=== PATIENT | female | born 1995 | race Caucasian/White ===

== ENCOUNTER 2020-07-30 07:17 | Inpatient (IN) | payer BC ==
--- NOTE | 2020-07-29 20:17 | PCM.LDHP ---
L&D History of Present Illness - General Date of Service: 07/30/20 Admit Problem/Dx: Admission Diagnosis/Problem Admission Diagnosis/Problem 07/29/20 19:56 Tonya is a 25-year-old 2 para 1-0-0-1 female admitted on the a.m. of 07/30/2020 at 39-0/7 weeks gestational age with an ELIZABETH of 08/06/2020 for induction of labor. Source of Information: Patient History Limitations: Reports: No Limitations - History of Present Illness Introduction:: Tonya is a 25-year-old 2 para 1-0-0-1 female admitted on the a.m. of 07/30/2020 at 39-0/7 weeks gestational age with an ELIZABETH of 08/06/2020 for induction of labor. The process of labor and delivery, its risks, benefits, limitations, follow-up and alternatives including allowing for natural onset of labor discussed in detail with the patient. She appears to understand and wishes to proceed. 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 Patient had menarche at age 10. Cycles are regular at every 30 days. She is not using any control at the time of conception. She had positive hCG on 12/09/2019 and her LMP started on 10/30/2019. Her present is dated by an early ultrasound that was done on 01/17/2020. It is supported by multiple ultrasounds during the course of her . She denies any STIs. Also any abnormal Pap smears. Her obstetric history consists of the followin. Male born 12/15/2019 at 36-5/7 weeks gestational age of 12 [facility]7 [facility] perineal laceration. history: Patient was seen early in the on 01/17/2020. She was seen on a very regular basis throughout the care course. Her weight gain was from 167 to 196.8 pounds for approximately 30 pound increase. Her vital signs have been stable. Fundal height growth has been appropriate. She desires natural labor. Her group B strep screen was negative. She is a g estational diabetic that is well controlled with Metformin 500 mg2 tabs daily. History of hypertension/preeclampsia with previous . She declined GC and Chlamydia evaluation. Prequel performed and was negative trisomy 21, 18 and 13 on 01/31/2020. Biophysical profiles of been done on a weekly basis and been reassuring since 32 weeks gestational age. Patient had her Tdap on 05/29/2020. Hepatitis B immunization given 1998. Laboratory testing in : Blood is a positive with a negative antibody screen. First laboratory test showed hemoglobin 12.9 g/dL. Platelets were 232,000. She is rubella immune. RPR was nonreactive. Urine culture was negative. Hepatitis B surface antigen and HIV assays were both negative. Second trimester labs showed hemoglobin 12.5 g/dL and platelets of 222,000. Her 3-hour glucose tolerance test was elevated with a fasting blood sugar 102 a 1 hour blood sugar of 202 a 2-hour blood sugar of 173 and a 3-hour glucose of 73. Antibody screen was negative. Group B strep screen is negative. Allergies: Nickel which causes a rash Medications: 1. Metformin 500 mg2 tabs daily 2. Hydrocortisone 2.5% external cream applied as needed to rash 3. Aspirin 81 mg p.o. daily 4. vitamins 1 p.o. daily 5. Folic acid 800 mcg/day 6. Calcium 500 mg p.o. daily 7. Colace 100 mg capsules twice daily as needed for constipation 8. Prilosec 20 mg p.o. daily as needed for dyspepsia Past medical history: 1. Asthma 2. Seasonal allergies 3. Abnormal Pap smear 2016 with ASCUS changes 4. Infertility 5. Hypertension with previous 6. Gestational diabetes. Past surgical history: Unremarkable Family history: Mother has family history of psoriasis. Maternal grandfather with lung cancer and psoriasis. Paternal grandfather with type 2 diabetes, hypertension, malignant melanoma and pancreatic cancer. Paternal grandfather had mets to his brain and bone. 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 She is a college graduate. She does not use any significant also alcohol, drugs or tobacco. is is Ernesto Review of systems: In general patient has no complaints. Baby has been active. Skin: Negative Lungs: No infectious symptoms or shortness of breath Cardiovascular: No chest pain or exercise intolerance Breasts: No lumps, changes in size, pain, dimpling, discharge or axillary or supraclavicular concerns. GI: Negative : Body habitus changes consistent with . Musculoskeletal: Negative Neurological: Patient has had carpal tunnel syndrome bilaterally with right side greater than left. In general the patient is well-developed, well-nourished, pleasant female of stated age in no acute distress. Skin is warm dry without lesions. HEENT, neck and back within normal limits. Lungs are clear with good breath sounds in all lung smith. Cardiovascular exam shows regular and rhythm without murmurs. Abdomen is gravid with last fundal height on 07/26/2020 at 39.5 cm.. Genital per them on 07/26/2020 shows cervix to be 2 cm plus, -3 station, 50% effaced, soft, mid position. Extremities show 1+ pitting edema otherwise are negative. Neurological exam is grossly within normal limits. Timing/Duration: Reports: sudden onset - Related Data Allergies/Adverse Reactions: Allergies Allergy/AdvReac Type Severity Reaction Status Date / Time nickel Allergy Rash Verified 12/10/17 17:27 Home Medications: Home Meds Acetaminophen [Tylenol] 650 mg PO Q6H PRN tablet 12/17/17 [Rx] Benzocaine/Menthol [Dermoplast Pain Relief [place]] 1 spray TOP ASDIRECTED PRN canister 12/17/17 [Rx] Docusate Sodium [Dulcolax Stool Softener] 100 mg PO BID #60 capsule 12/17/17 [Rx] Ibuprofen 200 - 600 mg PO Q6H #60 tablet 12/17/17 [Rx] Lanolin [Lansinoh HPA] 1 applic TOP ASDIRECTED PRN tube 12/17/17 [Rx] witch Herbert [Tucks] 1 pad TOP ASDIRECTED PRN pad 12/17/17 [Rx] Past Medical History HEENT History: Reports: None, Other (See Below) Other HEENT History: wears glasses Cardiovascular History: Reports: Hypertension, Other (See Below) Other Cardiovascular History: HTN with Respiratory History: Reports: Asthma, Other (See Below) Other Respiratory History: Hx stress induced asthma (exercise) and has not needed her inhaler x 6 years. 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 Psychiatric History: Reports: None Hematologic History: Reports: Anemia Immunologic History: Reports: None Oncologic (Cancer) History: Reports: None Dermatologic History: Reports: None - Infectious Disease History Infectious Disease History: Reports: None - Past Surgical History Head Surgeries/Procedures: Reports: None HEENT Surgical History: Reports: Oral Surgery Other HEENT Surgeries/Procedures: wisdom teeth pulled Cardiovascular Surgical History: Reports: None Respiratory Surgical History: Reports: None GI Surgical History: Reports: None Neurological Surgical History: Reports: None Dermatological Surgical History: Reports: None Social & Family History - Family History Family Medical History: No Pertinent Family History - Caffeine Use Caffeine Use: Reports: None H&P Review of Systems - Review of Systems: Review Of Systems: See Below L&D Exam - Exam Exam: See Below - Problem List (1) 39 weeks gestation of SNOMED Code(s): 53025734 ICD Code: Z3A.39 - 39 WEEKS GESTATION OF Status: Acute (2) History of pre-eclampsia SNOMED Code(s): 494742433409072 ICD Code: Z87.59 - PERSONAL HISTORY OF COMP OF PREG, CHLDBRTH AND THE PUERP Status: Acute Problem List Initiated/Reviewed/Updated: Yes Assessment/Plan Comment:: 1. Tonya is a 25-year-old 2 para 1-0-0-1 female admitted on the a.m. of 07/30/2020 at 39-0/7 weeks gestational age with an ELIZABETH of 08/06/2020 for induction of labor. 2. Group B strep negative 3. Patient plans to breast-feed 4. Risk factors include being a gestational diabeticcontrolled with Metformin and having a history of preeclampsia with previous 5. Patient desires natural labor 6. Prequel noninvasive screen was negative for trisomy 21, 18 and 13. 7. Patient's been on baby aspirin throughout the Plan: 1. Induction of labor-will initiate with Pitocin followed by AROM. 2. Patient is aware of analgesia availability in labor. She desires natural labor. 3. Anticipate 4. Additional labs consist of Covid19 testing, RPR, CBC 5. Support breast-feeding decision.
[~2020-07-30 07:17] MED LIST: Bupivacaine 0.25% 10 ML SDV ONE; Lidocaine 1% 10 ML MDV ONE; Sodium Chloride 0.9% 10 ML SDV ONE; [UNRECOGNIZED DRUG - OTHER] ONE
[2020-07-30] MEDS ORDERED: Nalbuphine 10 MG/1 ML Vial IVPUSH PRN (07:44)
[2020-07-30] MEDS ORDERED: Lidocaine 1% 50 ML MDV INJECT PRN (07:44)
[2020-07-30] MEDS ORDERED: Sodium Chloride 0.9% 10 ML Syringe FLUSH PRN (07:44)
[2020-07-30] MEDS ORDERED: Oxytocin/Lactated Ringers 10 UNIT/1,000 ML BAG IV SCH ×2 (07:45)
[2020-07-30] MEDS: Lactated Ringers 1,000 ML IV SCH ×3 (08:24→14:45)
[2020-07-30] MEDS ORDERED: ePHEDrine 50 MG/ML SDV IVPUSH PRN (11:22)
[2020-07-30] MEDS ORDERED: Ondansetron 4 MG/2 ML SDV IVPUSH PRN (11:22)
[2020-07-30] MEDS ORDERED: fentaNYL 100 MCG/2 ML SDV EPIDUR PRN (11:22)
--- NOTE | 2020-07-30 11:25 | PCM.PREANE ---
Preanesthetic Assessment - Procedure Proposed Procedure: Epidural - Anesthesia/Transfusion/Family Hx Anesthesia History: Prior Anesthesia Without Reaction Type of Anesthesia Reaction: Other (see below) (Patient states epidural did not work even after rebolus after she dilated to a 8.) Family History of Anesthesia Reaction: No Transfusion History: No Prior Transfusion(s) Intubation History: Unknown - Review of Systems General: No Symptoms Pulmonary: No Symptoms (exercise induced asthma-has not used inhaler in 2018) Cardiovascular: No Symptoms (History of Gestational HTN with prior : on ASA.) Gastrointestinal: No Symptoms (GERD-controlled with prilosec.), Constipation Neurological: No Symptoms (motion sickness), Tingling (Bilateral CTS with right worse than left.) Other: Reports: Diabetes (Gestational DM on metformin), Sinus Problem (seasonal allergies) - Physical Assessment NPO Status Date: 07/30/20 NPO Status Time: 06:30 Vital Signs: Last Vital Signs Temp 36.9 C 07/30/20 08:02 Pulse 73 07/30/20 09:30 Resp 18 07/30/20 08:02 BP 119/73 07/30/20 09:30 Pulse Ox Height: 1.65 m Weight: 91.172 kg ASA Class: 2 Mental Status: Alert & Oriented x3 Airway Class: Mallampati = 2 Dentition: Reports: Normal Dentition, Caries Thyro-Mental Finger Breadths: 3 Mouth Opening Finger Breadths: 3 ROM/Head Extension: Full Lungs: Clear to Auscultation, Normal Respiratory Effort Cardiovascular: Regular Rate, Regular Rhythm, No Murmurs - Lab Values: Laboratory Last Values WBC 10.49 K/mm3 (3.98-10.04) H 07/30/20 07:50 RBC 3.95 M/mm3 (3.98-5.22) L 07/30/20 07:50 Hgb 12.3 gm/dl (11.2-15.7) 07/30/20 07:50 Hct 36.5 % (34.1-44.9) 07/30/20 07:50 MCV 92.4 fl (79.4-94.8) 07/30/20 07:50 MCH 31.1 pg (25.6-32.2) 07/30/20 07:50 MCHC 33.7 g/dl (32.2-35.5) 07/30/20 07:50 RDW Std Deviation 40.5 fL (36.4-46.3) 07/30/20 07:50 Plt Count 218 K/mm3 (182-369) 07/30/20 07:50 MPV 11.4 fl (9.4-12.3) 07/30/20 07:50 SARS-CoV-2 RNA (GREER) Negative (NEGATIVE) 07/30/20 07:35 Above labs reviewed and noted and within acceptable ranges to proceed with epidural if desired. - Allergies Allergies/Adverse Reactions: Allergies Allergy/AdvReac Type Severity Reaction Status Date / Time nickel Allergy Rash Verified 12/10/17 17:27 - Anesthesia Plan Pre-Op Medication Ordered: None - Acknowledgements Anesthesia Type Planned: Epidural Pt an Appropriate Candidate for the Planned Anesthesia: Yes Alternatives and Risks of Anesthesia Discussed w Pt/Guardian: Yes Pt/Guardian Understands and Agrees with Anesthesia Plan: Yes PreAnesthesia Questionnaire HEENT History: Reports: None, Other (See Below) Other HEENT History: wears glasses Cardiovascular History: Reports: Hypertension, Other (See Below) Other Cardiovascular History: HTN with 1st Respiratory History: Reports: Asthma, Other (See Below) Other Respiratory History: Hx stress induced asthma (exercise) and has not needed her inhaler x 6 years. 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 Psychiatric History: Reports: None Endocrine/Metabolic History: Reports: Diabetes, Gestational Other Endocrine/Metabolic History: blood glucose checks kept in normal range through Hematologic History: Reports: Anemia Immunologic History: Reports: None Oncologic (Cancer) History: Reports: None Dermatologic History: Reports: None - Infectious Disease History Infectious Disease History: Reports: None - Past Surgical History Head Surgeries/Procedures: Reports: None HEENT Surgical History: Reports: Oral Surgery Other HEENT Surgeries/Procedures: wisdom teeth pulled Cardiovascular Surgical History: Reports: None Respiratory Surgical History: Reports: None GI Surgical History: Reports: None Endocrine Surgical History: Reports: None Neurological Surgical History: Reports: None Dermatological Surgical History: Reports: None - SUBSTANCE USE Tobacco Use Status *Q: Never Tobacco User Second Hand Smoke Exposure: No Recreational Drug Use History: No - HOME MEDS Home Medications: Home Meds Docusate Sodium [Dulcolax Stool Softener] 100 mg PO BID #60 capsule 12/17/17 [Rx] Aspirin 81 mg PO DAILY 07/30/20 [History] Calcium Carbonate/Vitamin D3 [Calcium 500 mg Chewable Tablet] 500 mg PO DAILY 07/30/20 [History] Folic Acid 0.8 mg PO DAILY 07/30/20 [History] Omeprazole Magnesium [Prilosec Otc] 20 mg PO DAILY 07/30/20 [History] Pnv,Calcium 72/Iron/Folic Acid [ Vitamin Plus Low Iron] 1 tab PO DAILY 07/30/20 [History] metFORMIN HCl [Metformin HCl] 1,000 mg PO DAILY 07/30/20 [History] - CURRENT (IN HOUSE) MEDS Current Meds: Current Medications Oxytocin/Lactated Ringer's (Pitocin In Lr 10 Units/1,000 Ml) 10 unit in 1,000 mls @ 12 mls/hr IV TITRATE DAVID; Protocol Last Titration: 07/30/20 11:14 Dose: 12 munits/min, 72 mls/hr Documented by: Oxytocin/Lactated Ringer's (Pitocin In Lr 10 Units/1,000 Ml) 10 unit in 1,000 mls @ 500 mls/hr IV .CONTINUOUS DAVID Lactated Ringer's (Ringers, Lactated) 1,000 mls @ 100 mls/hr IV ASDIRECTED DAVID Last Admin: 07/30/20 08:24 Dose: 100 mls/hr Documented by: Lidocaine HCl (Lidocaine 1% 50 Ml Mdv) 50 ml INJECT ONETIME PRN PRN Reason: Breakthrough Pain Nalbuphine HCl (Nalbuphine 10 Mg/1 Ml Vial) 10 mg IVPUSH Q2H PRN PRN Reason: Pain Sodium Chloride (Sodium Chloride 0.9% 10 Ml Syringe) 10 ml FLUSH ASDIRECTED PRN PRN Reason: Keep Vein Open
[2020-07-30] MEDS ORDERED: Bupivacaine/fentaNYL/NS 100 ML Bag EPIDUR SCH (11:30)
[2020-07-30] MEDS ORDERED: Witch Hazel Medicated Pads 40/Jar TOP PRN (17:08)
[2020-07-30] MEDS ORDERED: Docusate Sodium 100 MG Cap PO PRN (17:08)
[2020-07-30] MEDS ORDERED: Acetaminophen 325 MG Tab PO PRN (17:08)
[2020-07-30] MEDS ORDERED: Benzocaine/Menthol 20%-0.5% Spray 56 GM Canister TOP PRN (17:08)
--- NOTE | 2020-07-30 17:12 | PCM.SN.2 ---
- Free Text/Narrative Note: Delivery note: Stage I: Tonya is a 25-year-old 2 para 1-0-0-1 female admitted on the a.m. of 07/30/2020 at 39-0/7 weeks gestational age with an ELIZABETH of 08/06/2020 for induction of labor. Induction was initially started with Pitocin for approximately 3-4 hours followed by AROM with resultant clear amniotic fluid. Patient is group B strep negative. She desired and had placed an epidural in labor. After a round the contractions intensified and patient made steady and rapid progress to complete cervical dilation by approximately 1630 hrs. Epidural worked well. Vital signs are stable and reassuring throughout the entire course of labor. Contractions were every 3 minutes. Stage II: At 1642 hrs. on 07/30/2020 Tisha delivered a viable, queen, female infant named Daly in a direct occiput anterior position. With gentle downward and then upward traction the anterior and posterior shoulders were delivered without problems. The patient then reached down and delivered the baby the remainder of the way bringing the baby up onto her abdomen onto a warm dry blanket. The baby was dried with warm blanket and nose and mouth were bulb suction. Pitocin was increased to 500 cc an hour using routine solution per protocol of 10 units per 1000 mL of LR. The umbilical cord was allowed to pulsate for approximately 3 minutes after which was clamped x2 and cut by the baby's Father Ernesto. The umbilical cord had 3 vessels. Cord blood was obtained. The baby weighed 3580 g (7 pounds 14.3 ounces), had a length of 21.0 inches and had Apgars of 8 and 9. She had a small second-degree laceration which was repaired using 3-0 Monocryl suture in a routine fashion. Epidural analgesia was used for perineal laceration repair anesthesia with good results. Patient tolerated the repair well. Stage III: The placenta delivered in a Mann presentation, appeared intact and complete and was discarded per patient desire. Estimated blood loss was 100 cc. Condition: Good. Patient plans to breast-feed.
[2020-07-30] MEDS: Ibuprofen 600 MG Tab PO PRN (23:09)
[2020-07-31] MEDS: Ibuprofen 600 MG Tab PO PRN ×2 (03:45→07:58)
--- NOTE | 2020-07-31 07:58 | PCM48HPAN ---
Post Anesthesia Note - EVALUATION WITHIN 48HRS OF ANESTHETIC Vital Signs in Normal Range: Yes Patient Participated in Evaluation: Yes Respiratory Function Stable: Yes Airway Patent: Yes Cardiovascular Function Stable: Yes Hydration Status Stable: Yes Pain Control Satisfactory: Yes Nausea and Vomiting Control Satisfactory: Yes Mental Status Recovered: Yes Vital Signs: Last Vital Signs Temp 97.5 F 07/31/20 02:53 Pulse 70 07/31/20 02:53 Resp 16 07/31/20 02:53 BP 116/58 L 07/31/20 02:53 Pulse Ox 95 07/31/20 02:53 - COMMENTS/OBSERVATIONS Free Text/Narrative:: Patient having some back soreness but she stated pain is alleviated with a heating pad.
[2020-07-31] MEDS ORDERED: Prenatal Multivitamin with Calcium/Folic Acid/Iron Tab PO SCH (09:00)
--- NOTE | 2020-07-31 10:19 | PCM.SN.2 ---
- Free Text/Narrative Note: note: Patient is doing well in the period. Minimal lochia, voiding well, ambulated without problems. Nursing without concerns. Patient is afebrile, vital signs are stable Abdomen is flat, soft, uterus is below the umbilicus and is firm and nontender. Legs are nontender. Assessment: recovery going well. Plan: Routine care. Patient be discharged home within the next 24-48 hours.
--- NOTE | 2020-07-31 18:14 | PCM.DCSUM1 ---
Discharge Summary - Hospital Course Free Text/Narrative:: Delivery note: Stage I: Tonya is a 25-year-old 2 para 1-0-0-1 female admitted on the a.m. of 07/30/2020 at 39-0/7 weeks gestational age with an ELIZABETH of 08/06/2020 for induction of labor. Induction was initially started with Pitocin for approximately 3-4 hours followed by AROM with resultant clear amniotic fluid. Patient is group B strep negative. She desired and had placed an epidural in labor. After a round the contractions intensified and patient made steady and rapid progress to complete cervical dilation by approximately 1630 hrs. Epidural worked well. Vital signs are stable and reassuring throughout the entire course of labor. Contractions were every 3 minutes. Stage II: At 1642 hrs. on 07/30/2020 Tisha delivered a viable, queen, female named Daly in a direct occiput anterior position. With gentle downward and then upward traction the anterior and posterior shoulders were delivered without problems. The patient then reached down and delivered the baby the remainder of the way bringing the baby up onto her abdomen onto a warm dry blanket. The baby was dried with warm blanket and nose and mouth were bulb suction. Pitocin was increased to 500 cc an hour using routine solution per protocol of 10 units per 1000 mL of LR. The umbilical cord was allowed to pulsate for approximately 3 minutes after which was clamped x2 and cut by the baby's Father Ernesto. The umbilical cord had 3 vessels. Cord blood was obtained. The baby weighed 3580 g (7 pounds 14.3 ounces), had a length of 21.0 inches and had Apgars of 8 and 9. She had a small second-degree laceration which was repaired using 3-0 Monocryl suture in a routine fashion. Epidural analgesia was used for perineal laceration repair anesthesia with good results. Patient tolerated the repair well. Stage III: The placenta delivered in a Mann presentation, appeared intact and complete and was discarded per patient desire. Estimated blood loss was 100 cc. Condition: Good. Patient plans to breast-feed. Diagnosis: Stroke: No - Discharge Data Discharge Date: 07/31/20 Discharge Disposition: Home, Self-Care 01 Condition: Good - Referral to Home Health Primary Care Physician: Navjot Benitez MD - Discharge Diagnosis/Problem(s) (1) Vaginal delivery SNOMED Code(s): 340585733 ICD Code: O80 - ENCOUNTER FOR FULL-TERM UNCOMPLICATED DELIVERY Status: Acute Current Visit: Yes (2) 39 weeks gestation of SNOMED Code(s): 86159639 ICD Code: Z3A.39 - 39 WEEKS GESTATION OF Status: Acute Current Visit: No (3) History of pre-eclampsia SNOMED Code(s): 982554079942134 ICD Code: Z87.59 - PERSONAL HISTORY OF COMP OF PREG, CHLDBRTH AND THE PUERP Status: Acute Current Visit: No (4) Second degree laceration of perineum, delivered, current hospitalization SNOMED Code(s): 108852145, 389037638 ICD Code: O70.1 - SECOND DEGREE PERINEAL LACERATION DURING DELIVERY Status: Acute Current Visit: No - Patient Summary/Data Complications: None Consults: None Hospital Course: Tonya Pereira was admitted for induction of labor in the setting of A2 gestational diabetes. On admission her cervix was dilated to 2 cm. She was GBS negative. She was given pitocin for induction of labor. She had artificial rupture of membranes with clear fluid. She was given an epidural for anesthesia. She progressed to complete and began pushing. On 07/30/2020 she had a normal spontaneous vaginal delivery of a live female infant at 16:42. Apgars of 8 and 9. Weight of 3580 g (7 pounds 14.3 ounces). Her course was uneventful. Her pain was well controlled and she had minimal lochia. She was ambulating, tolerating a regular diet and voiding normally. She was breast- feeding with minimal difficulty. She was afebrile and her hematocrit was 36.5 on admission. She desired to be discharged home in the evening of PPD #1. Her blood type is A+. - Patient Instructions Diet: Regular Diet as Tolerated Activity: Apply Ice, As Tolerated Activity, Other: Nothing in the vagina for 6 weeks Driving: May Drive Today Showering/Bathing: May Shower Notify Provider of: Fever, Increased Pain, Swelling and Redness, Drainage, Nausea and/or Vomiting Other/Special Instructions: Please contact your physician's office if you have heavy vaginal bleeding enough to soak a pad in less than an hour for several hours. Monitor for any signs of an infection in the breasts with severe pain or redness of the breast. - Discharge Plan *PRESCRIPTION DRUG MONITORING PROGRAM REVIEWED*: Not Applicable *COPY OF PRESCRIPTION DRUG MONITORING REPORT IN PATIENT CRISTINA: Not Applicable Home Medications: Home Meds Docusate Sodium [Dulcoease] 100 mg PO BID #60 capsule 12/17/17 [Rx] Calcium Carbonate/Vitamin D3 [Calcium 500 mg Chewable Tablet] 500 mg PO DAILY 07/30/20 [History] Pnv,Calcium 72/Iron/Folic Acid [ Vitamin Plus Low Iron] 1 tab PO DAILY 07/30/20 [History] Acetaminophen [Tylenol] 650 mg PO Q6H PRN tablet 07/31/20 [Rx] Benzocaine/Menthol [Dermoplast Pain Relief Mason] 1 spray TOP ASDIRECTED PRN canister 07/31/20 [Rx] Ibuprofen [Motrin] 600 mg PO Q4H PRN tablet 07/31/20 [Rx] witch Herbert [Tucks] 1 pad TOP ASDIRECTED PRN pad 07/31/20 [Rx] Patient Handouts: Care of a Perineal Tear, Care After Vaginal Delivery Referrals: Navjot Benitez MD [Primary Care Provider] - (Follow-up in 2 to 3 weeks for routine care or earlier as needed.) - Discharge Summary/Plan Comment DC Time >30 min.: No - Patient Data Vitals - Most Recent: Last Vital Signs Temp 36.7 C 07/31/20 16:23 Pulse 90 07/31/20 16:23 Resp 16 07/31/20 16:23 BP 118/73 07/31/20 16:23 Pulse Ox 97 07/31/20 16:23 Weight - Most Recent: 91.172 kg I&O - Last 24 hours: Intake & Output 07/31/20 07/31/20 07/31/20 06:59 14:59 22:59 Intake Total 120 Balance 120 Lab Results - Last 24 hrs: Laboratory Results - last 24 hr 07/30/20 Range/Units 07:50 RPR Non-reactive (NONREACTIVE) Med Orders - Current: Current Medications Acetaminophen (Acetaminophen 325 Mg Tab) 650 mg PO Q4H PRN PRN Reason: mild pain or fever Last Admin: 07/31/20 02:53 Dose: 650 mg Documented by: Benzocaine/Menthol (Benzocaine/Menthol 20%-0.5% Mason 56 Gm Canister) 0 gm TOP ASDIRECTED PRN PRN Reason: Perineal Comfort Measure Last Admin: 07/30/20 17:45 Dose: 1 canister Documented by: Docusate Sodium (Docusate Sodium 100 Mg Cap) 100 mg PO BID PRN PRN Reason: Constipation Last Admin: 07/31/20 07:58 Dose: 100 mg Documented by: Ibuprofen (Ibuprofen 600 Mg Tab) 600 mg PO Q4H PRN PRN Reason: Mild pain or fever Last Admin: 07/31/20 07:58 Dose: 600 mg Documented by: Prenat Multivit/Lorain/Iron/Folic Ac ( Multivitamin With Calcium/Folic Acid/Iron Tab) 1 each PO DAILY DAVID Last Admin: 07/31/20 08:00 Dose: 1 each Documented by: Maria Luisa Antoine (Maria Luisa Antoine Medicated Pads 40/Jar) 1 pad TOP ASDIRECTED PRN PRN Reason: Perineal Comfort Measure Last Admin: 07/30/20 17:45 Dose: 1 tub Documented by: Discontinued Medications Bupivacaine HCl (Bupivacaine 0.25% 10 Ml Sdv) 10 ml .ROUTE .STK-MED ONE Stop: 07/30/20 00:01 Bupivacaine HCl (Bupivacaine 0.25% 10 Ml Sdv) 10 ml .ROUTE .STK-MED ONE Stop: 07/30/20 00:01 Ephedrine Sulfate (Ephedrine 50 Mg/Ml Sdv) 5 mg IVPUSH ASDIRECTED PRN PRN Reason: Hypotension Fentanyl (Fentanyl 100 Mcg/2 Ml Sdv) 100 mcg EPIDUR Q3H PRN PRN Reason: Pain Last Admin: 07/30/20 13:02 Dose: 100 mcg Documented by: Fentanyl/Bupivacaine HCl (Bupivacaine/Fentanyl/Ns 100 Ml Bag) 100 ml EPIDUR ASDIRECTED DAVID Last Admin: 07/30/20 13:04 Dose: 100 ml Documented by: Oxytocin/Lactated Ringer's (Pitocin In Lr 10 Units/1,000 Ml) 10 unit in 1,000 mls @ 12 mls/hr IV TITRATE DAVID; Protocol Last Titration: 07/30/20 16:44 Dose: 83.33 munits/min, 499.98 mls/hr Documented by: Oxytocin/Lactated Ringer's (Pitocin In Lr 10 Units/1,000 Ml) 10 unit in 1,000 mls @ 500 mls/hr IV .CONTINUOUS DAVID Lactated Ringer's (Ringers, Lactated) 1,000 mls @ 100 mls/hr IV ASDIRECTED [facility] Last Admin: 07/30/20 14:45 Dose: 100 mls/hr Documented by: Lidocaine HCl (Lidocaine 1% 50 Ml Mdv) 50 ml INJECT ONETIME PRN PRN Reason: Breakthrough Pain Lidocaine HCl (Lidocaine 1% 10 Ml Mdv) 10 ml .ROUTE .[employer]-Factorli ONE Stop: 07/30/20 00:01 Miscellaneous Medication (Phenylephrine Hcl In 0.9% Nacl 1 Mg/10 Ml Syringe) 0.1 mg IVPUSH Q10M PRN PRN Reason: Hypotension Nalbuphine HCl (Nalbuphine 10 Mg/1 Ml Vial) 10 mg IVPUSH Q2H PRN PRN Reason: Pain Ondansetron HCl (Ondansetron 4 Mg/2 Ml Sdv) 4 mg IVPUSH ONETIME PRN PRN Reason: Nausea/Vomiting Sodium Chloride (Sodium Chloride 0.9% 10 Ml Syringe) 10 ml FLUSH ASDIRECTED PRN PRN Reason: Keep Vein Open Sodium Chloride (Sodium Chloride 0.9% 10 Ml Sdv) 10 ml .ROUTE .Politapoll ONE Stop: 07/30/20 00:01
== END 2020-07-31 18:32 | disposition home or self-care (01) | DRG 560 ==
LOC: JD.OB 07:17 → OBSVTOIN 16:42 → JD.OB 16:42
PROVIDERS: ADMIT Obstetrics & Gynecology; ATTEND Obstetrics & Gynecology
PROC: 10E0XZZ Delivery of Products of Conception, External Approach (ICD-10-PCS; principal; 2020-07-30)
PROC: 10907ZC Drainage of Amniotic Fluid, Therapeutic from Products of Conception, Via Natural or Artificial Opening (ICD-10-PCS; 2020-07-30)
PROC: 3E033VJ Introduction of Other Hormone into Peripheral Vein, Percutaneous Approach (ICD-10-PCS; 2020-07-30)
PROC: 3E0R3BZ Introduction of Anesthetic Agent into Spinal Canal, Percutaneous Approach (ICD-10-PCS; 2020-07-30)
PROC: 0KQM0ZZ Repair Perineum Muscle, Open Approach (ICD-10-PCS; 2020-07-30)
DX: O24.425 Gestational diabetes mellitus in childbirth, controlled by oral hypoglycemic drugs (principal); Z3A.39 39 weeks gestation of pregnancy; Z37.0 Single live birth; O70.1 Second degree perineal laceration during delivery; O99.02 Anemia complicating childbirth; D64.9 Anemia, unspecified; Z20.822 Contact with and (suspected) exposure to COVID-19
CPT/HCPCS: 01967; 36415; 51702; 59025; 59409; 85027; 86592; 86803; A9270-GY; J2590; J3010; J3490; J7120; U0002

== ENCOUNTER 2022-11-18 13:01 | Emergency (ER) | payer BC | END 2022-11-18 16:16 | disposition home or self-care (01) | LOC: JD.ED 13:01 | DX: S93.402A Sprain of unspecified ligament of left ankle, initial encounter (principal); I10 Essential (primary) hypertension; Z79.899 Other long term (current) drug therapy; Z91.048 Other nonmedicinal substance allergy status; X50.1XXA Overexertion from prolonged static or awkward postures, initial encounter | CPT/HCPCS: 73610-26-LT; 73610-LT; 99283 ==